=== PATIENT | female | born 2000 | race Caucasian/White ===

== ENCOUNTER 2024-12-16 06:35 | Day surgery (SDC) | payer MEDICARE, MEDICAID ==
[2024-12-11 14:37] LABS: BASOPHILS # (AUTO) 0.1 X10'3 (0-0.2); BASOPHILS % (AUTO) 0.8 % (0-1); EOSINOPHILS # (AUTO) 0.1 X10'3 (0-0.9); EOSINOPHILS % (AUTO) 0.9 % (0-6); LYMPHOCYTES # (AUTO) 2.1 X10'3 (1.1-4.8); LYMPHOCYTES % (AUTO) 25.3 % (21-51); MEAN CORPUSCULAR HEMOGLOBIN 27.6 PG (27.0-31.0); MEAN CORPUSCULAR HGB CONC 33.3 g/dL (33.0-36.5); MEAN CORPUSCULAR VOLUME 82.9 FL (78-98); MEAN PLATELET VOLUME 8.3 FL (7.4-10.4); MONOCYTES # (AUTO) 0.6 X10'3 (0-0.9); MONOCYTES % (AUTO) 7.7 % (2-12); NEUTROPHILS # (AUTO) 5.3 X10'3 (1.8-7.7); NEUTROPHILS % (AUTO) 65.3 % (42-75); PRE OP HEMATOCRIT 43.1 % (35.0-45.0); PRE OP HEMOGLOBIN 14.3 g/dL (12.0-16.0); PRE OP PLATELET COUNT 320 X10'3 (140-440); PRE OP WHITE BLOOD COUNT 8.2 10'3 (4.8-10.8); RED BLOOD COUNT 5.19 X10'6 (4.20-5.60); RED CELL DISTRIBUTION WIDTH 14.9 % (11.5-14.5)
[2024-12-11 14:48] LABS: BILIRUBIN,URINE SMALL (Neg); CLARITY,URINE CLEAR (Clear); COLOR,URINE YELLOW (Yellow); GLUCOSE, URINE NEGATIVE (Neg); KETONES,URINE TRACE mg/dl (Neg); LEUKOCYTE ESTERASE ,URINE NEGATIVE (Neg); NITRITES, URINE NEGATIVE (Neg); OCCULT BLOOD,URINE LARGE (Neg); PROTEIN,URINE 30 mg/dl (Neg); UROBILINOGEN,URINE 0.2 E.U/dL (0.2-1.0)
[2024-12-11 14:54] LABS: ALBUMIN 3.6 G/DL (3.4-5.0); ALBUMIN/GLOBULIN RATIO 0.8 (1.1-1.5); ALKALINE PHOSPHATASE 146 IU/L (46-116); BLOOD UREA NITROGEN 7 MG/DL (7-18); BUN/CREATININE RATIO 7.9 (10.0-20.0); CALCIUM 9.1 MG/DL (8.5-10.1); CHLORIDE 102 MMOL/L (99-107); CREATININE 0.89 MG/DL (0.40-0.90); PRE OP ANION GAP 12 (8-16); PRE OP AST 93 U/L (10-37); PRE OP BILIRUB, TOTAL 0.4 MG/DL (0.0-1.0); PRE OP GLUCOSE 195 MG/DL (70-104); PRE OP POTASSIUM 3.6 MMOL/L (3.4-5.1); PRE OP SODIUM 137 MMOL/L (135-145); TOTAL CARBON DIOXIDE 23.4 MMOL/L (24-32); TOTAL PROTEIN 7.9 G/DL (6.4-8.2); eGFR 77 ML/MIN
[2024-12-11 14:58] LABS: UA COLLECTION TYPE CLN CATCH MIDSTREAM
[2024-12-11 14:59] LABS: WBC,URINE 0-4 /HPF (0-4)
[2024-12-11 15:00] LABS: BACTERIA,URINE FEW /HPF (Neg); CAL OXALATE CRYSTALS 1+ /HPF (NEGATIVE); MUCUS STRANDS FEW /LPF (Neg); SQUAMOUS EPITHELIAL CELL,UR MODERATE /LPF (FEW)
[2024-12-11 15:03] LABS: PRE OP ALT 83 U/L (30-65)
[2024-12-11 15:09] LABS: PRE OP PROTIME 10.7 SECONDS (9.0-12.0)
[2024-12-11 16:16] LABS: HCG SERUM QL NEGATIVE
[2024-12-16] VITALS (15 sets, daily range): BP systolic 99–142; BP diastolic 59–96; PULSE 78–104; RESP 14–27; TEMP 96.7; O2SAT 89–96
[~2024-12-16] VITALS: Ht 175.3 cm; Wt 146.2 kg
[2024-12-16] MEDS: CEFAZOLIN 3GM/DEXTROSE 150mL 150 ML IV ONE (05:30)
[~2024-12-16 06:35] MED LIST: BUPR-480 PO; CARI4.5C PO; DICY-19 PO; DOCUMENT DATE & TIME OF BETA-BLOCKER PO ONE; ESCI-8 PO; GUAN1TAB28 PO; METF-1203 PO; OMEP20CA16 PO; ONDA-243 PO; PROP10TA10 PO; SIMV-45 PO; TOP100T PO
[2024-12-16] MEDS: famotidine 20mg tablet PO ONE (07:30)
[2024-12-16] MEDS: ringers solution, lacted 1,000 ML IV SCH (07:30)
[2024-12-16] MEDS ORDERED: fentaNYL/PF 50MCG/1 ML 2ML syringe ONE ×2 (08:28→12:41)
[2024-12-16] MEDS ORDERED: ROPIVAcaine 0.5% (5mg/ml) 30ml vial ONE ×2 (08:29)
[2024-12-16] MEDS ORDERED: propofol inj 20 ML IV ONE ×2 (08:29→08:30)
[2024-12-16] MEDS ORDERED: dexamethasone sod phosphate 4mg/ml inj. ONE (08:29)
[2024-12-16] MEDS ORDERED: LIDOcaine 1%/PF 5ML 10 MG/ML VIAL ONE (08:30)
[2024-12-16] MEDS ORDERED: ondansetron/PF 4mg/2ml inj ONE (08:32)
[2024-12-16] MEDS ORDERED: sevoflurane 250ml liquid IH ONE (09:00)
[2024-12-16] MEDS ORDERED: BUPIVAcaine 0.5% inj/PF 0 ML ONE (09:16)
[2024-12-16] MEDS ORDERED: LIDOcaine 1% W/epiNEPHrine 1:100,000 20ml vial ONE (09:16)
[2024-12-16] MEDS ORDERED: bacitracin 15gm ointment TP ONE (09:17)
[2024-12-16] MEDS ORDERED: vancomycin 1,000mg inj ONE (09:45)
[2024-12-16] MEDS ORDERED: rocuronium 10mg/ml inj IV ONE ×2 (10:15)
[2024-12-16] MEDS ORDERED: neostigmine methylsulfate 1 MG/ML 10ml vial ONE (12:59)
[2024-12-16] MEDS ORDERED: glycopyrrolate 0.2mg/ml inj ONE (12:59)
== END 2024-12-16 16:53 | disposition home or self-care (01) ==
LOC: PAS 06:35
PROVIDERS: ATTEND Podiatrist Foot & Ankle Surgery
DX: M21.072 Valgus deformity, not elsewhere classified, left ankle (principal); M67.02 Short Achilles tendon (acquired), left ankle; F32.A Depression, unspecified; M89.8X7 Other specified disorders of bone, ankle and foot; E66.9 Obesity, unspecified; F41.8 Other specified anxiety disorders; G40.909 Epilepsy, unspecified, not intractable, without status epilepticus; Z79.01 Long term (current) use of anticoagulants; Z79.899 Other long term (current) drug therapy; F41.9 Anxiety disorder, unspecified; K21.9 Gastro-esophageal reflux disease without esophagitis; F43.10 Post-traumatic stress disorder, unspecified; Z88.6 Allergy status to analgesic agent; E78.5 Hyperlipidemia, unspecified; Z90.49 Acquired absence of other specified parts of digestive tract; Z98.890 Other specified postprocedural states; Z88.8 Allergy status to other drugs, medicaments and biological substances
CPT/HCPCS: 27635; 27685; 27709; 36415; 73600; 80053; 81001; 82948; 84703; 85025; 85610; 85730; 93005; A4618; A6222; A6253; A6402; A6455; A7000; C1713; J1100; J1885; J2405; J2704; J2710; J2795; J3010; J3370; J3490; J7030; J7120; Z7506; Z7508; Z7512; Z7610; 76000; A6449

== ENCOUNTER 2025-04-21 07:44 | Day surgery (SDC) | payer MEDICARE, MEDICAID ==
[2025-04-14 11:54] LABS: MEAN PLATELET VOLUME 8.5 FL (7.4-10.4); PRE OP HEMATOCRIT 36.0 % (35.0-45.0); PRE OP HEMOGLOBIN 11.3 g/dL (12.0-16.0); PRE OP PLATELET COUNT 382 X10'3 (140-440); PRE OP WHITE BLOOD COUNT 9.7 10'3 (4.8-10.8); RED CELL DISTRIBUTION WIDTH 15.7 % (11.5-14.5)
[2025-04-14 11:58] LABS: HCG SERUM QL NEGATIVE
[2025-04-14 11:58] LABS: LEUKOCYTE ESTERASE ,URINE NEGATIVE (Neg); NITRITES, URINE NEGATIVE (Neg); OCCULT BLOOD,URINE NEGATIVE (Neg)
[2025-04-14 12:03] LABS: PRE OP INR 1.0 INR; PRE OP PARTIAL THROMB. TIME 25.0 SECONDS (22-32); PRE OP PROTIME 10.2 SECONDS (9.0-12.0)
[2025-04-14 12:04] LABS: CREATININE 0.73 MG/DL (0.40-0.90); PRE OP ALT 37 U/L (30-65); PRE OP ANION GAP 13 (8-16); PRE OP AST 73 U/L (10-37); PRE OP BILIRUB, TOTAL 0.2 MG/DL (0.0-1.0); PRE OP POTASSIUM 3.9 MMOL/L (3.4-5.1); PRE OP SODIUM 136 MMOL/L (135-145); TOTAL CARBON DIOXIDE 21.4 MMOL/L (24-32); eGFR > 90 ML/MIN
[2025-04-14 12:11] LABS: UA COLLECTION TYPE CLN CATCH MIDSTREAM
[2025-04-14 12:16] LABS: CAL OXALATE CRYSTALS 1+ /HPF (NEGATIVE); MUCUS STRANDS FEW /LPF (Neg); RENAL CELLS, URINE FEW /HPF; SQUAMOUS EPITHELIAL CELL,UR MODERATE /LPF (FEW)
[2025-04-14 12:17] LABS: AMORPHOUS URATES 1+
[2025-04-14 12:21] LABS: PRE OP GLUCOSE 293 MG/DL (70-104)
[2025-04-21] VITALS (20 sets, daily range): BP systolic 92–131; BP diastolic 40–85; PULSE 82–96; RESP 13–22; TEMP 96.5; O2SAT 92–97
[~2025-04-21] VITALS: Ht 175.3 cm; Wt 146.1 kg
[~2025-04-21 07:44] MED LIST changes: +BIRTH CONTROL PO; -DOCUMENT DATE & TIME OF BETA-BLOCKER PO ONE
[2025-04-21] MEDS: ringers solution, lacted 1,000 ML IV SCH (08:49)
[2025-04-21] MEDS: Cefazolin 3 GM/100ML NS IVPB 100 ML IV ONE (08:50)
[2025-04-21] MEDS ORDERED: MIDAZolam 1 MG/ML 5ML VIAL ONE (10:26)
[2025-04-21] MEDS ORDERED: fentaNYL /PF 50mcg/ml 5ml ampule ONE (10:26)
[2025-04-21] MEDS ORDERED: dexamethasone sod phosphate 4mg/ml inj. ONE (11:10)
[2025-04-21] MEDS ORDERED: ondansetron/PF 4mg/2ml inj ONE (11:10)
[2025-04-21] MEDS ORDERED: morphine 4 MG/ML inj SYRINge IV PRN (11:35)
[2025-04-21] MEDS ORDERED: enalaprilat 1.25mg/ml 2ml vial IV PRN (11:35)
[2025-04-21] MEDS ORDERED: ringers solution, lacted 1,000 ML IV SCH (11:35)
[2025-04-21] MEDS ORDERED: ondansetron/PF 4mg/2ml inj IV PRN (11:35)
[2025-04-21] MEDS ORDERED: meperidine/PF 25mg/ml syringe IV PRN ×3 (11:35)
[2025-04-21] MEDS ORDERED: labetalol 20mg/4ml (5mg/ml) syringe IV PRN (11:35)
--- NOTE | 2025-04-21 11:39 | ANESTHESIA RECORDS ---
Nerve Block Providers to CC ~ Diagnosis: Nerve Block requested by: RUBEN SALGADO DPM Neuraxial/Peripheral Nerve Block requested for Post-operative analgesia by Physician above DIAGNOSIS: Post-operative pain. (Body Area) Shoulder: [ ] Arm: [ ] Hand: [ ] Hip: [ ] Knee: [ ] Ankle: [ ] Foot: [ ] Leg: [ ] Abdomen: [ ] Other: [ ] Post-operative pain expected to be/is inadequately managed by oral or IV medicines. Regional anesthetic expected to facilitate rehabilitation and/or discharge from facility. Other:[ ] Procedure Performed: Femoral / Saphenous: Right Popliteal Lateral: Right Time out Done?: Yes Time of Time out: 10:23 Procedure Details: PROCEDURE DETAILS: Risks, benefits and alternatives explained Informed consent obtained, and patient wishes to proceed Conscious sedation with indicated monitors Patient positioned, pertinent anatomy defined, sterile technique used Needle used: [ ] 3 1/8 inch Stimuplex Ultra 22ga [x ] 4 inch Stimuplex Ultra 20ga [ ] 6 inch Stimuplex Ultra 20ga [ ] 6 inch, Quik[place] over the needle catheter set 20ga [ ] 4 inch Quik[place] over the needle catheter set 20ga [ ]Other: [ ] Loss of twitch @ [___0.5 ]mA [x ] Single Injection [ ] Catheter Ultrasound Guidance Used: [x ] Yes [ ] No Attempts:[ once ] Medicines injected: [x ]Clonidine Amt:[ 100 mcgs ] [x ]Dexamethasone Amt:[__5 mgs ] [x ]Ropivacaine Amt:[ 0.5% 30 cc ] [ ]Bupivacaine Amt:[ 0.375% 16 cc ] [ ]Lidocaine Amt:[ ] [ ]Exparel 1.33%:[ ] [ ]Epinephrine Amt[ ] [ ]Other: [ ] Intermittent aspiration during local anesthetic administration No symptoms of intraneural or intravenous injection Patient tolerated procedure well Comments Right Popliteal fossa Block Pt in Lt lateral position with Left Leg flexed at 90 Degrees. Lateral approach. Ultrasound probe placed back of thigh 2 inches above the knee joint. Easy visualization of the Sciatic nerve. 1% xylocaine local anesthetic. Easy visualization of Spreading of local anesthetic anterior and posterior to the Sciatic nerve sub paraneurally inside sciatic nerve sheath. Meaningful conversation t throughout. No Pain or discomfort during injection. Rt Adductor Canal blk Procedure done before surgery under General anesthesia. Pt supine with Rt leg rotated to Rt slightly. Easy visualization of Adductor Canal with ultra sound anterolateral to Femoral artery at the junction of upper and middle third of thigh. Able to see the tip of the needle and injected local anesthetic with the ultrasound. IFRAH CELESTE MD Apr 21, 2025 11:39
[2025-04-21] MEDS ORDERED: BUPIVAcaine/PF 7.5mg/ml (0.75%) 10ml vial ONE (11:41)
[2025-04-21] MEDS ORDERED: LIDOcaine 1%/PF 5ML 10 MG/ML VIAL ONE (11:41)
[2025-04-21] MEDS ORDERED: ROPIVAcaine 0.5% (5mg/ml) 30ml vial ONE (11:41)
[2025-04-21] MEDS ORDERED: rocuronium 10mg/ml inj IV ONE (11:41)
[2025-04-21] MEDS ORDERED: propofol inj 20 ML IV ONE (11:41)
[2025-04-21] MEDS ORDERED: morphine 10mg/ml inj. ONE (13:43)
== END 2025-04-21 18:52 | disposition home or self-care (01) ==
LOC: PAS 07:44 → EDSTATUS 08:30 → PAS 18:52
PROVIDERS: ATTEND Podiatrist Foot & Ankle Surgery
DX: M21.071 Valgus deformity, not elsewhere classified, right ankle (principal); M89.8X7 Other specified disorders of bone, ankle and foot; M25.571 Pain in right ankle and joints of right foot; G89.18 Other acute postprocedural pain; E11.9 Type 2 diabetes mellitus without complications; K21.9 Gastro-esophageal reflux disease without esophagitis; E66.01 Morbid (severe) obesity due to excess calories; E78.5 Hyperlipidemia, unspecified; G43.909 Migraine, unspecified, not intractable, without status migrainosus; F41.9 Anxiety disorder, unspecified; F32.A Depression, unspecified; F43.10 Post-traumatic stress disorder, unspecified; Z90.49 Acquired absence of other specified parts of digestive tract; Z98.818 Other dental procedure status; Z88.5 Allergy status to narcotic agent; Z91.018 Allergy to other foods; Z88.8 Allergy status to other drugs, medicaments and biological substances; Z68.42 Body mass index [BMI] 45.0-49.9, adult
CPT/HCPCS: 27620; 27685; 27709; 28120; 36415; 64445; 64447; 73600; 80053; 81001; 82948; 83036; 84703; 85025; 85610; 85730; 87088; A4618; A6222; A6253; A6402; A6446; A6455; A7000; C1713; J0690; J1100; J2250; J2270; J2405; J2704; J2795; J3010; J3373; J3490; J7030; J7120; Z7506; Z7508; Z7512; Z7610; 76000; A6449; J2274